=== PATIENT | male | born 2000 | race African-American/Black ===

== ENCOUNTER 2019-07-07 07:27 | Emergency (ER) | payer SELFPAY ==
[~2019-07-07] VITALS: Ht 167.6 cm; Wt 72.1 kg
[2019-07-07 08:58] VITALS: BP 160/108
--- NOTE | 2019-07-07 09:17 | PHYS DOC ---
Adult General Chief Complaint Chief Complaint: EYE PROBLEMS HPI HPI Patient is a 19 year old male who presents with right eye pain has been ongoing for several weeks intermittently. He denies the pain at this time. He also denies blurry vision, floaters, or foreign body sensation. Rates his pain as 0 out of 10 at this time. Review of Systems Review of Systems Constitutional: Denies fever or chills [] Eyes: Denies change in visual acuity, redness but reports intermittent eye pain [] HENT: Denies nasal congestion or sore throat [] Respiratory: Denies cough or shortness of breath [] Cardiovascular: No additional information not addressed in HPI [] GI: Denies abdominal pain, nausea, vomiting, bloody stools or diarrhea [] : Denies dysuria or hematuria [] Musculoskeletal: Denies back pain or joint pain [] Integument: Denies rash or skin lesions [] Neurologic: Denies headache, focal weakness or sensory changes [] Endocrine: Denies polyuria or polydipsia [] Complete systems were reviewed and found to be within normal limits, except as documented in this note. Physical Exam Physical Exam Constitutional: Well developed, well nourished, no acute distress, non-toxic appearance. [] HENT: Normocephalic, atraumatic, bilateral external ears normal, oropharynx moist, no oral exudates, nose normal. [] Eyes: PERRLA, EOMI, conjunctiva normal, no discharge. [] Neck: Normal range of motion, no tenderness, supple, no stridor. [] Cardiovascular:Heart rate regular rhythm, no murmur [] Lungs & Thorax: Bilateral breath sounds clear to auscultation [] Abdomen: Bowel sounds normal, soft, no tenderness, no masses, no pulsatile masses. [] Skin: Warm, dry, no erythema, no rash. [] Back: No tenderness, no CVA tenderness. [] Extremities: No tenderness, no cyanosis, no clubbing, ROM intact, no edema. [] Neurologic: Alert and oriented X 3, normal motor function, normal sensory function, no focal deficits noted. [] Psychologic: Affect normal, judgement normal, mood normal. [] EKG EKG [] Radiology/Procedures Radiology/Procedures [] Course & Med Decision Making Course & Med Decision Making Pertinent Labs and Imaging studies reviewed. (See chart for details) Patient does not have a primary care doctor, and I discussed with him the importance of obtaining one as his blood pressure was high on his visit today. Also discussed with the patient the importance of follow up with an Eye doctor. Visual acuities show eye sight is 20/50 in the R eye as opposed to 20/25 in the left eye. 20/50 in both eyes. Will d/c to have follow up with optometry. Dragon Disclaimer Dragon Disclaimer This electronic medical record was generated, in whole or in part, using a voice recognition dictation system. Departure Departure Impression: Primary Impression: Eye abnormality Disposition: HOME, SELF-CARE Condition: STABLE Referrals: NO PCP (PCP) Pancho VELAZQUEZ MD Additional Instructions: Please call and make an appointment with Dr. Velazquez today. Please make an appointment with a primary care doctor about your blood pressure. Thank you for visiting [facility]. We appreciate you trusting us with your care. If any additional problems come up don't hesitate to return to visit us. Please follow up with your primary care provider so they can plan additional care if needed and know about the problem that you had. If symptoms worsen come back to the Emergency Department. Any concerning symptoms that start such as chest pain, shortness of air, weakness or numbness on one side of the body, running high fevers or any other concerning symptoms return to the ER. LILIA PEREZ APRN Jul 07, 2019 09:17
== END 2019-07-07 09:28 | disposition home or self-care (01) ==
LOC: ER 07:27
DX: H57.11 Ocular pain, right eye (principal)
CPT/HCPCS: 99282